=== PATIENT | male | born 1965 ===

== ENCOUNTER 2017-05-04 22:16 | Emergency (ER) | payer MEDICARE, MEDICAID ==
[2017-05-04 22:26] VITALS: RESP 18; TEMP 98.2; O2SAT 100
[2017-05-04 23:05] LABS: BASO # 0.1 K/uL (0.0-0.2); BASO % 0.6 % (0.0-2.0); EOS # 0.5 K/uL (0.0-0.7); HEMOGLOBIN 12.8 g/dL (12.0-18.0); LYMPH # 3.8 K/uL (1.0-4.3); LYMPH % 40.4 % (20.0-40.0); MEAN CELL VOLUME 87.7 fl (80.0-94.0); MEAN CORPUSCULAR HEMOGLOBIN 30.1 pg (27.0-31.0); MEAN CORPUSCULAR HGB CONC 34.4 g/dL (33.0-37.0); MEAN PLATELET VOLUME 7.1 fl (7.2-11.7); MONO # 0.7 K/uL (0.0-0.8); MONO % 7.2 % (0.0-10.0); NEUT # 4.4 K/uL (1.8-7.0); NEUT % 46.8 % (50.0-75.0); RBC 4.24 Mil/uL (4.40-5.90); RED CELL DISTRIBUTION WIDTH 14.7 % (11.5-14.5); WHITE BLOOD COUNT 9.3 K/uL (4.8-10.8)
[2017-05-04 23:11] LABS: BLOOD UREA NITROGEN 19 mg/dl (9-20); CALCIUM 9.7 mg/dL (8.4-10.2); GFR AFRICAN-AMERICAN > 60; GFR NON-AFRICAN AMERICAN > 60
--- NOTE | 2017-05-04 23:23 | ED PDOC ---
HPI: Headache Time Seen by Provider: 05/04/17 22:23 Chief Complaint (Nursing): Dizziness/Lightheaded Chief Complaint (Provider): Headache History Per: Patient History/Exam Limitations: no limitations Onset/Duration Of Symptoms: Days (x4), Gradual, Persistent Current Symptoms Are (Timing): Still Present Associated Symptoms: Photophobia. denies: Extremity Weakness Additional Complaint(s): 51 year old male presents to ED with complaints of persistent migraine headaches x4 days and has a history of HTN (compliant with medication). States that the throbbing headaches are present in the frontal and occipital areas of the head and are not thunderclap headaches. (+) photophobia and dizziness, (-) numbness, weakness, neck stiffness, chest pain, or SOB. PCP: Emy Flores Past Medical History Reviewed: Historical Data, Nursing Documentation, Vital Signs Vital Signs: Last Vital Signs Temp 98.2 F 05/04/17 22:22 Pulse 73 05/04/17 22:59 Resp 18 05/04/17 22:22 BP 117/116 H 05/04/17 22:59 Pulse Ox 100 05/04/17 22:22 - Medical History PMH: HTN, Hypercholesterolemia, Hyperlipidemia - Surgical History Surgical History: Tonsillectomy - Family History Family History: States: Unknown Family Hx - Social History Alcohol: Occasional - Home Medications Home Medications: Ambulatory Orders Medication Instructions Recorded Acetaminophen with Codeine 1 tab PO Q8H #10 tab 03/27/15 [Tylenol with Codeine No. 3 300 mg-30 mg] Naproxen [Naprosyn] 500 mg PO Q12H #20 tab 03/27/15 Naproxen 375 mg PO Q8 PRN #21 tab 09/08/15 oxyCODONE/Acetaminophen [Percocet 1 ea PO Q6 PRN #10 tab 09/08/15 5/325 mg Tab] Famotidine [Pepcid] 20 mg PO Q12 #14 tab 10/16/16 traMADol [Ultram] 50 mg PO Q6 PRN #12 tab 10/16/16 Cyclobenzaprine [Cyclobenzaprine 10 mg PO BID PRN #10 tab 10/23/16 HCl] Naproxen [Naprosyn] 500 mg PO Q12 PRN #14 tablet 10/23/16 Ketorolac Tromethamine [Toradol] 10 mg PO Q6 #20 tab 05/05/17 - Allergies Allergies/Adverse Reactions: Allergies Allergy/AdvReac Type Severity Reaction Status Date / Time No Known Allergies Allergy Verified 10/16/16 19:44 Review of Systems ROS Statement: Except As Marked, All Systems Reviewed And Found Negative Constitutional: Negative for: Fever Eyes: Positive for: Other (Photophobia) Cardiovascular: Negative for: Chest Pain Respiratory: Negative for: Shortness of Breath Neurological: Positive for: Headache, Dizziness. Negative for: Weakness, Numbness Physical Exam - Reviewed Nursing Documentation Reviewed: Yes Vital Signs Reviewed: Yes - Physical Exam Appears: Positive for: Non-toxic, No Acute Distress Head Exam: Positive for: ATRAUMATIC Skin: Positive for: Normal Color, Warm, Dry Eye Exam: Positive for: Normal appearance, EOMI, PERRL Neck: Positive for: Normal, Painless ROM, Supple Cardiovascular/Chest: Positive for: Regular Rate, Rhythm. Negative for: Murmur Respiratory: Positive for: Normal Breath Sounds. Negative for: Respiratory Distress Gastrointestinal/Abdominal: Positive for: Soft. Negative for: Tenderness Extremity: Positive for: Normal ROM. Negative for: Deformity Neurologic/Psych: Positive for: Alert, carcass splitter II-XII (intact), Oriented, Cerebellar Tests (intact), Gait (steady). Negative for: Motor/Sensory Deficits - Laboratory Results Result Diagrams: 05/04/17 22:58 05/04/17 22:58 - ECG O2 Sat by Pulse Oximetry: 100 (RA) Pulse Ox Interpretation: Normal Medical Decision Making Medical Decision Makin Initial impression: migraine headache and HTN Initial plan: * CT HEAD * EKG * Labs * Trop I * Reglan 10mg IVP * Toradol 15mg IVP * Re-eval 3439 CT FINDINGS: Brain: No intracranial hemorrhage. No mass. Few scattered subtle foci of decreased attenuation within periventricular/subcortical white matter. No definite edema. Ventricles: No hydrocephalus. Bones/joints: No acute fracture. Soft tissues: Unremarkable. Sinuses: Scattered mild mucosal thickening. Tiny RIGHT maxillary retention cyst. Mastoid air cells: Minimal partial opacification of RIGHT mastoid, stable. Orbits: Unremarkable as visualized. IMPRESSION: 1. Nonspecific white matter changes. Acute infarction may be CT occult within first 24 hours. If a focal deficit persists, consider followup CT or MRI for further evaluation. 2. Incidental/non-acute findings are described above. 0142 Upon re-evaluation, patient is feeling much better and is medically stable and ready for discharge. Counseling has been provided and patient is in agreement. Return if symptoms persist or acutely worsen. Instructed to recheck BP in the morning before administering AM dose of blood pressure medication. Scribe Attestation: Documented by Faith Gaspar acting as a scribe for Bruno Bailey MD. Scribe Attestation: All medical record entries made by the Scribe were at my direction and personally dictated by me. I have reviewed the chart and agree that the record accurately reflects my personal performance of the history, physical exam, medical decision making, and the department course for this patient. I have also personally directed, reviewed, and agree with the discharge instructions and disposition. Disposition - Clinical Impression Clinical Impression: Dizziness, Headache, Hypertension Counseled Patient/Family Regarding: Studies Performed, Diagnosis - Disposition Referrals: Emy Flores MD [Family Provider] - Disposition: Routine/Home Disposition Time: 01:42 Condition: IMPROVED Prescriptions: Ketorolac Tromethamine [Toradol] 10 mg PO Q6 #20 tab Instructions: Migraine Headache (ED), Hypertension (DC)
--- NOTE | 2017-05-04 23:40 | CT ---
EXAM: CT Head Without Intravenous Contrast CLINICAL HISTORY: 51 years old, male; Pain; Headache; Headache not specified; Additional info: Hypertensive, RAZA, R/O bleed TECHNIQUE: Axial computed tomography images of the head/brain without intravenous contrast. This CT exam was performed using one or more of the following dose reduction techniques: automated exposure control, adjustment of the mA and/or kV according to patient size, and/or use of iterative reconstruction technique. Coronal and sagittal reformatted images were created and reviewed. COMPARISON: CT HEAD OR BRAIN W/O CONT 01/25/2014 6:41:25 PM FINDINGS: Brain: No intracranial hemorrhage. No mass. Few scattered subtle foci of decreased attenuation within periventricular/subcortical white matter. No definite edema. Ventricles: No hydrocephalus. Bones/joints: No acute fracture. Soft tissues: Unremarkable. Sinuses: Scattered mild mucosal thickening. Tiny RIGHT maxillary retention cyst. Mastoid air cells: Minimal partial opacification of RIGHT mastoid, stable. Orbits: Unremarkable as visualized. IMPRESSION: 1. Nonspecific white matter changes. Acute infarction may be CT occult within first 24 hours. If a focal deficit persists, consider followup CT or MRI for further evaluation. 2. Incidental/non-acute findings are described above.
[2017-05-05 01:51] VITALS: BP 148/104; PULSE 67
--- NOTE | 2017-05-05 09:55 | CARD ---
APPROVED REPORT EKG Measurement Heart [id number] <Conclusion> Normal sinus rhythm Normal ECG
== END 2017-05-05 01:55 | disposition home or self-care (01) ==
LOC: H.ER 22:16
DX: R42 Dizziness and giddiness (principal); R51 Headache; I10 Essential (primary) hypertension; E78.00 Pure hypercholesterolemia, unspecified
CPT/HCPCS: 70450; 80048; 84484; 85025; 93005; 96374; 96375; 99284; J1885; J2765

== ENCOUNTER 2017-10-20 07:21 | Emergency (ER) | payer MEDICARE, MEDICAID ==
[2017-10-20 07:26] VITALS: BMI 25.0
[2017-10-20 07:27] VITALS: TEMP 97.6
[2017-10-20] MEDS ORDERED: Sodium Chloride 0.9% 1,000 ML IV STA (07:50)
[2017-10-20] MEDS ORDERED: Morphine 4 MG/ML VIAL ONE (07:55)
[2017-10-20] MEDS ORDERED: Iohexol 240 (50 ml) PO ONE (07:55)
[2017-10-20] MEDS ORDERED: Iohexol 240 (50 ml) ONE (07:55)
[2017-10-20 08:02] LABS: BASO # 0.1 K/uL (0.0-0.2); BASO % 0.8 % (0.0-2.0); EOS # 0.6 K/uL (0.0-0.7); EOS % 4.2 % (0.0-4.0); HEMATOCRIT 42.3 % (35.0-51.0); LYMPH # 3.6 K/uL (1.0-4.3); MEAN CELL VOLUME 86.4 fl (80.0-94.0); MEAN CORPUSCULAR HEMOGLOBIN 29.3 pg (27.0-31.0); MEAN CORPUSCULAR HGB CONC 33.9 g/dL (33.0-37.0); MONO % 6.4 % (0.0-10.0); NEUT # 9.7 K/uL (1.8-7.0); NEUT % 64.6 % (50.0-75.0); NRBC % 0.1 % (0.0-0.0); RED CELL DISTRIBUTION WIDTH 14.6 % (11.5-14.5); WHITE BLOOD COUNT 14.9 K/uL (4.8-10.8)
--- NOTE | 2017-10-20 08:05 | ED PDOC ---
HPI: Abdomen Time Seen by Provider: 10/20/17 07:24 Chief Complaint (Nursing): Abdominal Pain Chief Complaint (Provider): Abdominal Pain History Per: Patient History/Exam Limitations: no limitations Onset/Duration Of Symptoms: Days (x2) Current Symptoms Are (Timing): Still Present Additional Complaint(s): Manuel Harley is a 52 year old male with a past medical history of HTN and gastritis who presents to the ED complaining of RLQ pain x2 days. Patient states pain began last night and denies history of similar pain. Denies nausea, vomiting, diarrhea, and fever. PMD: Non-[facility] Provider Past Medical History Reviewed: Historical Data, Nursing Documentation, Vital Signs Vital Signs: Last Vital Signs Temp 97.6 F 10/20/17 07:26 Pulse 82 10/20/17 11:54 Resp 16 10/20/17 11:54 BP 162/95 H 10/20/17 11:54 Pulse Ox 97 10/21/17 13:27 - Medical History PMH: HTN, Hypercholesterolemia, Hyperlipidemia - Surgical History Surgical History: Tonsillectomy - Family History Family History: States: Unknown Family Hx - Home Medications Home Medications: Ambulatory Orders Medication Instructions Recorded Acetaminophen with Codeine 1 tab PO Q8H #10 tab 03/27/15 [Tylenol with Codeine No. 3 300 mg-30 mg] Naproxen [Naprosyn] 500 mg PO Q12H #20 tab 03/27/15 Naproxen 375 mg PO Q8 PRN #21 tab 09/08/15 oxyCODONE/Acetaminophen [Percocet 1 ea PO Q6 PRN #10 tab 09/08/15 5/325 mg Tab] Famotidine [Pepcid] 20 mg PO Q12 #14 tab 10/16/16 traMADol [Ultram] 50 mg PO Q6 PRN #12 tab 10/16/16 Cyclobenzaprine [Cyclobenzaprine 10 mg PO BID PRN #10 tab 10/23/16 HCl] Naproxen [Naprosyn] 500 mg PO Q12 PRN #14 tablet 10/23/16 Ketorolac Tromethamine [Toradol] 10 mg PO Q6 #20 tab 05/05/17 Docusate [Colace] 100 mg PO BID PRN #10 cap 10/20/17 - Allergies Allergies/Adverse Reactions: Allergies Allergy/AdvReac Type Severity Reaction Status Date / Time No Known Allergies Allergy Verified 10/16/16 19:44 Review of Systems ROS Statement: Except As Marked, All Systems Reviewed And Found Negative Constitutional: Negative for: Fever Gastrointestinal: Positive for: Abdominal Pain (RLQ). Negative for: Nausea, Vomiting, Diarrhea Physical Exam - Reviewed Nursing Documentation Reviewed: Yes Vital Signs Reviewed: Yes - Physical Exam Appears: Positive for: Well, Non-toxic, No Acute Distress Skin: Positive for: Normal Color, Warm, Dry Neck: Positive for: Normal Cardiovascular/Chest: Positive for: Regular Rate, Rhythm. Negative for: Murmur Respiratory: Positive for: Normal Breath Sounds. Negative for: Respiratory Distress Gastrointestinal/Abdominal: Positive for: Tenderness (RLQ tender to palpation) Extremity: Positive for: Normal ROM Neurologic/Psych: Positive for: Alert, Oriented (x3) - Laboratory Results Result Diagrams: 10/20/17 07:50 10/20/17 07:50 - ECG O2 Sat by Pulse Oximetry: 97 (RA) Pulse Ox Interpretation: Normal Medical Decision Making Medical Decision Making: Time: 07:48 Initial Impression: Abdominal pain r/o appendicitis Plan: --CT Abd, pelvis PO & IV contrast --CMP --Lipase --CBC w/ differential --Morphine 4 mg IV --Sodium Chloride 0.9% 1,000 ml IV --Iohexol 50 mg PO --Urine C&S --Urinalysis --Reevaluation 0930 pt sleeping in bed in NAD CT see full report. no appendicitis seen. only constipation. Time: 12:30 --Patient is tolerating PO and results of study were discussed. Upon provider evaluation patient is medically stable, and requires no further treatment in the ED at this time. Patient will be discharged with Rx for Colace. Counseling was provided and all questions were answered regarding diagnosis and need for follow up with PMD. There is agreement to discharge plan. Return if symptoms persist or worsen. Scribe Attestation: Documented by Alvin Lane, acting as a scribe for Tamir Cruz MD. Provider Scribe Attestation: All medical record entries made by the Scribe were at my direction and personally dictated by me. I have reviewed the chart and agree that the record accurately reflects my personal performance of the history, physical exam, medical decision making, and the department course for this patient. I have also personally directed, reviewed, and agree with the discharge instructions and disposition. Disposition - Clinical Impression Clinical Impression: Abdominal pain, Constipation - Patient ED Disposition Is Patient to be Admitted: No Counseled Patient/Family Regarding: Studies Performed, Diagnosis, Need For Followup, Rx Given - Disposition Referrals: [facility] [Outside] [facility] [Outside] Disposition: Routine/Home Disposition Time: 12:30 Condition: IMPROVED Additional Instructions: follow up with your primary doctor in 1-2 days return to the ED with any worsening or concerning symptoms Prescriptions: Docusate [Colace] 100 mg PO BID PRN #10 cap PRN Reason: Constipation Instructions: Constipation (ED) Forms: [employer] (Portuguese)
[2017-10-20 08:11] LABS: ALB/GLOB RATIO 1.3 (1.0-2.1); ALKALINE PHOSPHATASE 166 U/L (38-126); ALT/SGPT 35 U/L (21-72); AST/SGOT 26 U/L (17-59); BILIRUBIN,TOTAL 0.4 mg/dl (0.2-1.3); BLOOD UREA NITROGEN 15 mg/dl (9-20); CALCIUM 9.2 mg/dL (8.4-10.2); CARBON DIOXIDE 26 mmol/L (22-30); CHLORIDE 104 mmol/L (98-107); GFR AFRICAN-AMERICAN > 60; GLUCOSE,RANDOM 93 mg/dL (75-110); LIPASE 111 U/L (23-300); POTASSIUM 3.7 MMOL/L (3.6-5.0); SODIUM 142 mmol/l (132-148); TOTAL PROTEIN 7.8 G/DL (6.3-8.2)
[2017-10-20 08:23] LABS: RBC URINE 2 /hpf (0-3); URINE BILIRUBIN NEGATIVE (NEGATIVE); URINE BLOOD SMALL (NEGATIVE); URINE COLOR YELLOW (YELLOW); URINE GLUCOSE (UA) NEG (Normal); URINE KETONE NEGATIVE (NEGATIVE); URINE LEUKOCYTE ESTERASE NEG Leu/uL (Negative); URINE PROTEIN NEGATIVE (NEGATIVE); URINE UROBILINOGEN 0.2-1.0 mg/dL (0.2-1.0); WBC URINE < 1 /hpf (0-5)
[2017-10-20] MEDS ORDERED: Iohexol 300 100 ML IJ ONE (09:51)
--- NOTE | 2017-10-20 10:33 | CT ---
PROCEDURE: CT Abdomen and Pelvis with contrast HISTORY: Right lower quadrant pain COMPARISON: None. TECHNIQUE: CT scan of the abdomen and pelvis was performed after intravenous administration of contrast. Oral contrast was administered. Coronal and sagittal reformatted images were obtained. Contrast dose: 95 cc Omnipaque 300 Radiation dose: Total exam DLP = 940.70 mGy-cm. This CT exam was performed using one or more of the following dose reduction techniques: Automated exposure control, adjustment of the mA and/or kV according to patient size, and/or use of iterative reconstruction technique. FINDINGS: LOWER THORAX: There is bibasilar subsegmental atelectasis. LIVER: Normal in size with homogeneous enhancement. No gross lesion or ductal dilatation. There is non contiguous curvilinear high attenuation in the anterior inferior left hepatic lobe which may represent vascular enhancement or nonspecific calcifications. GALLBLADDER AND BILE DUCTS: There are no calcified gallstones. PANCREAS: Normal in size with homogeneous enhancement. No gross lesion or ductal dilatation. SPLEEN: The spleen is normal in size with homogeneous enhancement. A tiny 3 mm low-attenuation lesion in the inferior pole posteriorly is too small to characterize by CT criteria. ADRENALS: No discrete nodule. KIDNEYS AND URETERS: Both kidneys are normal in size and there is homogeneous enhancement without hydronephrosis or focal mass. . No hydronephrosis. No solid mass. VASCULATURE: No aortic aneurysm. BOWEL: The small bowel loops are normal in caliber. There is fecalization of the distal small bowel loops. There is large amount of stool in the colon with fecal stasis in the rectum. No bowel dilatation or obstruction APPENDIX: Normal appendix. PERITONEUM: No free fluid. No free air. LYMPH NODES: No enlarged lymph nodes. BLADDER: The urinary bladder is partially distended and there is apparent moderate circumferential mural thickening of the bladder wall, most conspicuous anteriorly. REPRODUCTIVE: There is mild enlargement of the prostate gland. BONES: No acute fracture. There is mild multilevel degenerative disc disease. Focal areas of sclerosis in the posterior superior T9 vertebral body and inferior T2 vertebral body statistically most compatible with a bone island. OTHER FINDINGS: There are bilateral small fat containing inguinal hernias. IMPRESSION: 1. Constipation and fecalization of distal small bowel contents consistent with chronic stasis. No evidence of bowel dilatation or obstruction. 2. No CT evidence for acute appendicitis. 3. Apparent moderate mural thickening of the urinary bladder wall, most conspicuous anteriorly is nonspecific and could be related to underdistention however cystitis cannot be excluded. Please correlate with urine analysis.
[2017-10-20 11:55] VITALS: BP 162/95; PULSE 82; RESP 16
[2017-10-20 14:14] VITALS: O2SAT 97
== END 2017-10-20 12:35 | disposition home or self-care (01) ==
LOC: H.ER 07:21
DX: K59.00 Constipation, unspecified (principal); R10.31 Right lower quadrant pain; E78.00 Pure hypercholesterolemia, unspecified; I10 Essential (primary) hypertension
CPT/HCPCS: 74177; 80053; 81003; 83690; 85025; 87086; 96374; 96375; 99283; J1885; J2270; J7040; Q9966; Q9967

== ENCOUNTER 2018-09-06 10:51 | Emergency (ER) | payer MEDICARE, MEDICAID ==
[2018-09-06 10:51] VITALS: BMI 25.0
[2018-09-06 11:55] LABS: BASO # 0.1 K/uL (0.0-0.2); BASO % 0.6 % (0.0-2.0); EOS # 0.5 K/uL (0.0-0.7); EOS % 4.5 % (0.0-4.0); HEMOGLOBIN 13.6 g/dL (12.0-18.0); LYMPH # 2.9 K/uL (1.0-4.3); LYMPH % 28.4 % (20.0-40.0); MEAN CELL VOLUME 89.3 fl (80.0-94.0); MEAN CORPUSCULAR HEMOGLOBIN 29.4 pg (27.0-31.0); MEAN CORPUSCULAR HGB CONC 32.9 g/dL (33.0-37.0); MEAN PLATELET VOLUME 6.9 fl (7.2-11.7); MONO # 0.7 K/uL (0.0-0.8); MONO % 7.1 % (0.0-10.0); NEUT % 59.4 % (50.0-75.0); NRBC % 0.1 % (0.0-0.0); RBC 4.62 Mil/uL (4.40-5.90); RED CELL DISTRIBUTION WIDTH 14.2 % (11.5-14.5); WHITE BLOOD COUNT 10.1 K/uL (4.8-10.8)
[2018-09-06 12:13] LABS: ALB/GLOB RATIO 1.3 (1.0-2.1); ALBUMIN 4.3 g/dL (3.5-5.0); ALT/SGPT 33 U/L (21-72); AST/SGOT 31 U/L (17-59); BLOOD UREA NITROGEN 11 mg/dl (9-20); CALCIUM 9.2 mg/dL (8.4-10.2); GFR NON-AFRICAN AMERICAN > 60
--- NOTE | 2018-09-06 12:26 | ED PDOC ---
HPI: Chest Pain Time Seen by Provider: 09/06/18 11:13 Chief Complaint (Nursing): Chest Pain Chief Complaint (Provider): chest and shoulder pain History Per: Patient History/Exam Limitations: no limitations Onset/Duration Of Symptoms: Hrs Current Symptoms Are (Timing): Still Present Quality: Sharp Exacerbating Factors: Other (sitting up and taking a deep breath) Alleviating Factors: None Additional Complaint(s): 53 y/o Male cocaine user and current smoker with hx of HTN, HL,who presents with sharp Left sided C/P that began this morning. Patient states that he was eating breakfast when he suddenly had a sharp pain behind his Left shoulder blade that radiated around to his chest and his Left shoulder. The pain in his chest and arm were fleeting but the scapular pain persists. Worse with deep inspiration and leaning forward. No dizziness, SOB, palpitations, N/V, upper or lower extremity numbness. States that he last used cocaine 2 months ago. - Risk Factors PE Risk Factors: Neg: Extremity Immobilization/Fx, Decreased Mobilty /Activity, Previous PE, Venous Stasis TAD Risk Factors: Pos: Hypertension, Sudden Onset Of Pain Past Medical History Reviewed: Historical Data, Nursing Documentation, Vital Signs Vital Signs: Last Vital Signs Temp 98.4 F 09/06/18 10:57 Pulse 88 09/06/18 10:57 Resp 16 09/06/18 10:57 BP 169/111 H 09/06/18 12:00 Pulse Ox 99 09/06/18 10:57 - Medical History PMH: HTN, Hyperlipidemia Other PMH: cocaine use - Surgical History Surgical History: Tonsillectomy - Family History Family History: States: Stroke (mother - age 70s) - Social History Current smoker - smoking cessation education provided: Yes (1pack every 4 days for the past 30yrs) Alcohol: Social (a few beers per week) - Home Medications Home Medications: Ambulatory Orders Medication Instructions Recorded Acetaminophen with Codeine 1 tab PO Q8H #10 tab 03/27/15 [Tylenol with Codeine No. 3 300 mg-30 mg] Naproxen [Naprosyn] 500 mg PO Q12H #20 tab 03/27/15 Naproxen 375 mg PO Q8 PRN #21 tab 09/08/15 oxyCODONE/Acetaminophen [Percocet 1 ea PO Q6 PRN #10 tab 09/08/15 5/325 mg Tab] Famotidine [Pepcid] 20 mg PO Q12 #14 tab 10/16/16 traMADol [Ultram] 50 mg PO Q6 PRN #12 tab 10/16/16 Cyclobenzaprine [Cyclobenzaprine 10 mg PO BID PRN #10 tab 10/23/16 HCl] Naproxen [Naprosyn] 500 mg PO Q12 PRN #14 tablet 10/23/16 Ketorolac Tromethamine [Toradol] 10 mg PO Q6 #20 tab 05/05/17 Docusate [Colace] 100 mg PO BID PRN #10 cap 10/20/17 Cyclobenzaprine [Cyclobenzaprine 10 mg PO Q8H PRN 3 Days tab 09/06/18 HCl] Ibuprofen [Motrin Tab] 600 mg PO Q6H PRN 5 Days tab 09/06/18 - Allergies Allergies/Adverse Reactions: Allergies Allergy/AdvReac Type Severity Reaction Status Date / Time No Known Allergies Allergy Verified 10/16/16 19:44 Review of Systems ROS Statement: Except As Marked, All Systems Reviewed And Found Negative Cardiovascular: Positive for: Chest Pain. Negative for: Palpitations, Edema, Light Headedness Respiratory: Positive for: Pleuritic Pain. Negative for: Cough, Shortness of Breath Gastrointestinal: Negative for: Nausea, Vomiting Musculoskeletal: Positive for: Arm Pain. Negative for: Neck Pain Neurological: Negative for: Weakness, Numbness Physical Exam - Reviewed Nursing Documentation Reviewed: Yes Vital Signs Reviewed: Yes - Physical Exam Appears: Positive for: Non-toxic Head Exam: Positive for: ATRAUMATIC Skin: Positive for: Normal Color Eye Exam: Positive for: Normal appearance, EOMI, PERRL ENT: Positive for: Normal ENT Inspection Neck: Positive for: Normal Cardiovascular/Chest: Positive for: Regular Rate, Rhythm Respiratory: Positive for: Normal Breath Sounds Gastrointestinal/Abdominal: Positive for: Normal Exam (no pulsating mass noted in abdomen) Back: Positive for: Normal Inspection Extremity: Positive for: Normal ROM. Negative for: Pedal Edema, Calf Tenderness Lymphatic: Positive for: Normal Exam Neurologic/Psych: Positive for: Alert, Oriented - Laboratory Results Result Diagrams: 09/06/18 11:50 09/06/18 11:50 - ECG ECG: Positive for: Interpreted By Me ECG Rhythm: Positive for: Sinus Rhythm (NSR, HR 87, no ischemic changes.) O2 Sat by Pulse Oximetry: 99 Medical Decision Making Medical Decision Making: EKG CXR Troponin CBC, CMP Ibuprofen 600mg PO x 1 CXR negative for acute abnormality, EKG: sinus, HR 87, no ischemic change. Trop: < 0.02 Re-evaluated prior to discharge with improvement in scapular and chest pain. Disposition - Clinical Impression Clinical Impression: Shoulder blade pain, Musculoskeletal pain - Patient ED Disposition Is Patient to be Admitted: No Counseled Patient/Family Regarding: Studies Performed, Diagnosis, Rx Given - Disposition Referrals: [facility] [Outside] Disposition: Routine/Home Disposition Time: 16:37 Condition: STABLE Additional Instructions: Use Ibuprofen and Flexeril as needed for pain for the next few days. Avoid excess exercise for the next few days. Prescriptions: Cyclobenzaprine [Cyclobenzaprine HCl] 10 mg PO Q8H PRN 3 Days tab PRN Reason: Pain, Moderate (4-7) Ibuprofen [Motrin Tab] 600 mg PO Q6H PRN 5 Days tab PRN Reason: Pain, Moderate (4-7) Instructions: Muscle and Bone Pain (DC) Forms: [employer] (Lao) Print Language: DANISH
[2018-09-06 12:34] LABS: BARBITURATES, UR NEGATIVE (NEGATIVE); BENZODIAZEPINES, UR NEGATIVE (NEGATIVE); OPIATES, UR NEGATIVE (NEGATIVE); PHENCYCLIDINE, UR NEGATIVE (NEGATIVE)
--- NOTE | 2018-09-06 14:38 | RAD ---
Date of service: 09/06/2018 HISTORY: shortness of breath, cough COMPARISON: Ribs with chest 10/21/2016. TECHNIQUE: Chest PA and lateral FINDINGS: LUNGS: No active pulmonary disease. PLEURA: No significant pleural effusion identified. No pneumothorax apparent. CARDIOVASCULAR: No aortic atherosclerotic calcification present. Normal cardiac size. No pulmonary vascular congestion. OSSEOUS STRUCTURES: No significant abnormalities. VISUALIZED UPPER ABDOMEN: Normal. OTHER FINDINGS: None. IMPRESSION: No interval acute cardiopulmonary disease appreciated.
[2018-09-06 16:44] VITALS: BP 156/98; PULSE 76; RESP 16; TEMP 98.7
--- NOTE | 2018-09-06 18:16 | CARD ---
APPROVED REPORT Date of service: 09/06/2018 EKG Measurement Heart [id number] <Conclusion> Normal sinus rhythm Normal ECG
[2018-09-06 20:59] VITALS: O2SAT 99
== END 2018-09-06 16:37 | disposition home or self-care (01) ==
LOC: H.ER 10:51
DX: M25.512 Pain in left shoulder (principal); M79.10 Myalgia, unspecified site; I10 Essential (primary) hypertension; F17.200 Nicotine dependence, unspecified, uncomplicated; E78.5 Hyperlipidemia, unspecified
CPT/HCPCS: 71046; 80053; 84484; 85025; 93005; 99285; G0480

== ENCOUNTER 2018-11-26 15:16 | Emergency (ER) | payer MEDICARE, MEDICAID ==
[2018-11-26 15:16] VITALS: BMI 25.0
[2018-11-26 15:32] VITALS: RESP 18
[2018-11-26] MEDS ORDERED: Lidocaine 5% Patch TD STA (16:02)
--- NOTE | 2018-11-26 16:13 | ED PDOC ---
HPI: General Adult Chief Complaint (Provider): Left upper back pain/ musculoskeletal pain Additional History Per: Patient Additional Complaint(s): This is 3 y/o M with PMH of HTN, HLD, Gastritis, kidney infection, Chronic lower back and shoulder pain comes to the ER c/o 4 days hx of left upper back pain/muscle spasm. Patient reports pain comes and goes, 7/10, more worse at night while on bed, gets better with walking, sharp in nature, radiated to lateral back and shoulder. Patient reports on and off nausea and one episode of NBNB vomiting last night. Patient denies any substernal chest pain, dizziness, vision problem, urinary symptoms, weakness, numbness or tingling. PMH: As per HPI PSH: Tonsillectomy Allg: NKDA FH: Denies SH: Smokes on and off, 30 years heavy smoking, 2-3 beers/day, denies any alcohol use ROS: As per HPI <Conrad Griffin - Last Filed: 11/26/18 18:49> <Cheli Simpson - Last Filed: 11/26/18 21:04> Time Seen by Provider: 11/26/18 15:32 Chief Complaint (Nursing): Chest Pain Supervising Attending Note - Supervising Attending Note The Documented history was done by the: Physician Stonemason, Attending Physician The documented physical exam was done by the: Physician Stonemason, Attending Physician - Attestation: I have personally seen and examined this patient.: Yes I have fully participated in the care of the patient.: Yes I have reviewed all pertinent clinical information, including history, physical exam and plan: Yes - Notes: Notes:: LEFT flank pain and CVA tenderness but unremarkable ER workup. Stable for dc with clinic followup. <Cheli Simpson - Last Filed: 11/26/18 21:04> Past Medical History Vital Signs: Last Vital Signs Temp 97.7 F 11/26/18 15:30 Pulse 78 11/26/18 15:30 Resp 18 11/26/18 15:30 BP 158/97 H 11/26/18 15:30 Pulse Ox 98 11/26/18 15:30 - Medical History PMH: HTN, Hypercholesterolemia, Hyperlipidemia - Surgical History Surgical History: Tonsillectomy - Family History Family History: States: Unknown Family Hx, Stroke (mother - age 70s) <Conrad Griffin - Last Filed: 11/26/18 18:49> Vital Signs: Last Vital Signs Temp 98.4 F 11/26/18 19:10 Pulse 79 11/26/18 19:10 Resp 18 11/26/18 19:10 BP 141/82 11/26/18 19:10 Pulse Ox 100 11/26/18 19:10 <Cheli Simpson - Last Filed: 11/26/18 21:04> - Home Medications Home Medications: Ambulatory Orders Medication Instructions Recorded Cyclobenzaprine [Cyclobenzaprine 10 mg PO Q8H PRN 3 Days tab 09/06/18 HCl] RX: Ibuprofen [Motrin Tab] 600 mg PO Q6H PRN 5 Days tab 09/06/18 Acetaminophen [Tylenol] 650 mg PO Q6H PRN #30 tab 11/26/18 Cyclobenzaprine [Cyclobenzaprine 10 mg PO Q8H PRN #15 tab 11/26/18 HCl] Docusate Sodium [Colace] 100 mg PO BID PRN #20 capsule 11/26/18 - Allergies Allergies/Adverse Reactions: Allergies Allergy/AdvReac Type Severity Reaction Status Date / Time No Known Allergies Allergy Verified 11/26/18 15:30 Review of Systems Constitutional: Negative for: Fever Eyes: Negative for: Pain ENT: Negative for: Ear Pain, Ear Discharge Cardiovascular: Negative for: Chest Pain Respiratory: Negative for: Cough, Shortness of Breath, Hemoptysis Gastrointestinal: Negative for: Nausea, Vomiting, Abdominal Pain, Diarrhea Genitourinary Male: Negative for: Dysuria, Frequency Musculoskeletal: Positive for: Shoulder Pain, Arm Pain, Back Pain. Negative for: Neck Pain, Leg Pain Neurological: Negative for: Weakness, Numbness, Incoordination Psych: Negative for: Anxiety <Conrad Griffin - Last Filed: 11/26/18 18:49> Physical Exam - Physical Exam Appears: Positive for: No Acute Distress Head Exam: Positive for: NORMAL INSPECTION Skin: Positive for: Normal Color Eye Exam: Positive for: Normal appearance, EOMI, PERRL ENT: Positive for: Normal ENT Inspection Neck: Positive for: Normal, Painless ROM. Negative for: Supple Cardiovascular/Chest: Positive for: Regular Rate, Rhythm. Negative for: Edema, JVD, Murmur Respiratory: Positive for: Normal Breath Sounds. Negative for: Decreased Breath Sounds, Accessory Muscle Use, Crackles, Stridor Gastrointestinal/Abdominal: Positive for: Normal Exam, Bowel Sounds, Soft. Negative for: Tenderness, Distended, Guarding Back: Positive for: Muscle Spasm (left upper back. Tenderness of left upper back and lateral upper back ). Negative for: Vertebral Tenderness Extremity: Positive for: Normal ROM. Negative for: Tenderness, Pedal Edema Neurologic/Psych: Positive for: Alert, electrical and electronic assembler II-XII, Oriented <Conrad Griffin - Last Filed: 11/26/18 18:49> - Laboratory Results Result Diagrams: 11/26/18 16:28 11/26/18 16:28 - ECG O2 Sat by Pulse Oximetry: 98 - Progress ED Course And Treament: A/P: 53 y/o M with Left upper back pain radiating to his lateral back. - CBC, CMP, Lipase - EKG - UA - Toradol, Tylenol, Pepcid, Lidoderm patch and Flexeril - Reevaluation Case discussed with Dr. Simpson CBC, CMP, LIpase reviewed: WNL CT Abdo/Pelvis: reviewed, no acute anatomical abnormalities Patient refused enema Patient agrees with discharge plan Re-evaluation Time: 18:32 Condition: Improving,but remains with symptoms <Conrad Griffin - Last Filed: 11/26/18 18:49> - Laboratory Results Result Diagrams: 11/26/18 16:28 11/26/18 16:28 Lab Results: Total Bilirubin 0.2 mg/dl (0.2-1.3) 11/26/18 16:28 AST 27 U/L (17-59) 11/26/18 16:28 ALT 29 U/L (21-72) 11/26/18 16:28 Alkaline Phosphatase 127 U/L (38-126) H 11/26/18 16:28 Total Protein 7.5 G/DL (6.3-8.2) 11/26/18 16:28 Albumin 4.2 g/dL (3.5-5.0) 11/26/18 16:28 Globulin 3.3 gm/dL (2.2-3.9) 11/26/18 16:28 Albumin/Globulin Ratio 1.3 (1.0-2.1) 11/26/18 16:28 Lipase 109 U/L (23-300) 11/26/18 16:28 Urine Color Colorless (YELLOW) 11/26/18 16:50 Urine Clarity Clear (Clear) 11/26/18 16:50 Urine pH 7.0 (5.0-8.0) 11/26/18 16:50 Ur Specific [place] < 1.005 (1.003-1.030) 11/26/18 16:50 Urine Protein Negative mg/dL (NEGATIVE) 11/26/18 16:50 Urine Glucose (UA) Neg mg/dL (NEGATIVE) 11/26/18 16:50 Urine Ketones Negative mg/dL (NEGATIVE) 11/26/18 16:50 Urine Blood Negative (NEGATIVE) 11/26/18 16:50 Urine Nitrate Negative (NEGATIVE) 11/26/18 16:50 Urine Bilirubin Negative (NEGATIVE) 11/26/18 16:50 Urine Urobilinogen 0.2-1.0 mg/dL (0.2-1.0) 11/26/18 16:50 Ur Leukocyte Esterase Neg [place]/uL (Negative) 11/26/18 16:50 <Cheli Simpson - Last Filed: 11/26/18 21:04> Medical Decision Making Medical Decision Making: Musculoskeletal pain/Muscle spasm Constipation <Conrad Griffin - Last Filed: 11/26/18 18:49> Disposition - Patient ED Disposition Is Patient to be Admitted: No - Disposition Disposition: Routine/Home Disposition Time: 18:35 <Conrad Griffin - Last Filed: 11/26/18 18:49> <Cheli Simpson - Last Filed: 11/26/18 21:04> - Clinical Impression Clinical Impression: Musculoskeletal pain, Muscle spasm of back - Disposition Referrals: Conrad Griffin MD [Family Provider] - Condition: STABLE Additional Instructions: F/u with PMD on 12/01/18 Bed rest, no heavy lifting Return to ER if symptoms do not resolve or gets worse Prescriptions: Acetaminophen [Tylenol] 650 mg PO Q6H PRN #30 tab PRN Reason: Pain, Moderate (4-7) Cyclobenzaprine [Cyclobenzaprine HCl] 10 mg PO Q8H PRN #15 tab PRN Reason: Pain, Moderate (4-7) Docusate Sodium [Colace] 100 mg PO BID PRN #20 capsule PRN Reason: Constipation Instructions: Muscle Strain, Constipation in Adults, Muscle Spasms (DC) Forms: [facility] (Ukrainian) Print Language: NEPALI
[2018-11-26] MEDS ORDERED: Lidocaine 5% Patch TD ONE (16:34)
[2018-11-26 16:44] LABS: BASO # 0.1 K/uL (0.0-0.2); BASO % 0.8 % (0.0-2.0); EOS # 0.4 K/uL (0.0-0.7); EOS % 5.8 % (0.0-4.0); LYMPH # 2.7 K/uL (1.0-4.3); LYMPH % 36.2 % (20.0-40.0); MEAN CELL VOLUME 89.1 fl (80.0-94.0); MEAN CORPUSCULAR HEMOGLOBIN 30.1 pg (27.0-31.0); MEAN CORPUSCULAR HGB CONC 33.8 g/dL (33.0-37.0); MEAN PLATELET VOLUME 7.2 fl (7.2-11.7); MONO # 0.5 K/uL (0.0-0.8); MONO % 7.1 % (0.0-10.0); NEUT # 3.7 K/uL (1.8-7.0); NEUT % 50.1 % (50.0-75.0); NRBC % 0.2 % (0.0-0.0); RBC 4.64 Mil/uL (4.40-5.90); RED CELL DISTRIBUTION WIDTH 14.2 % (11.5-14.5); WHITE BLOOD COUNT 7.4 K/uL (4.8-10.8)
[2018-11-26 16:46] LABS: ALB/GLOB RATIO 1.3 (1.0-2.1); ALBUMIN 4.2 g/dL (3.5-5.0); ALT/SGPT 29 U/L (21-72); AST/SGOT 27 U/L (17-59); BLOOD UREA NITROGEN 19 mg/dl (9-20); CALCIUM 9.7 mg/dL (8.4-10.2); GFR NON-AFRICAN AMERICAN > 60; LIPASE 109 U/L (23-300)
[2018-11-26 17:15] LABS: URINE BILIRUBIN NEGATIVE (NEGATIVE); URINE BLOOD NEGATIVE (NEGATIVE); URINE CLARITY CLEAR (Clear); URINE COLOR COLORLESS (YELLOW); URINE GLUCOSE (UA) NEG (NEGATIVE); URINE LEUKOCYTE ESTERASE NEG Leu/uL (Negative); URINE PROTEIN NEGATIVE (NEGATIVE); URINE UROBILINOGEN 0.2-1.0 mg/dL (0.2-1.0)
--- NOTE | 2018-11-26 18:11 | CT ---
Date of service: 11/26/2018 PROCEDURE: CT Abdomen and Pelvis without intravenous contrast HISTORY: LEFT flank pain COMPARISON: CT scan of the abdomen and pelvis dated 10/20/2017 TECHNIQUE: Contiguous images were obtained from the domes of the diaphragms to the upper thighs without the administration of intravenous contrast. Oral contrast was not administered. Radiation dose: Total exam DLP = 573.92 mGy-cm. This CT exam was performed using one or more of the following dose reduction techniques: Automated exposure control, adjustment of the mA and/or kV according to patient size, and/or use of iterative reconstruction technique. FINDINGS: LOWER THORAX: Unremarkable. LIVER: Inferior left hepatic lobe punctate calcifications. No gross lesion or ductal dilatation. GALLBLADDER AND BILE DUCTS: Contracted. Unremarkable. PANCREAS: Unremarkable. No gross lesion or ductal dilatation. SPLEEN: Unremarkable. ADRENALS: Unremarkable. No mass. KIDNEYS AND URETERS: Unremarkable. No hydronephrosis. No solid mass. VASCULATURE: Unremarkable. No aortic aneurysm. No aortic atherosclerotic calcification or mural plaque present. BOWEL: Small hiatal hernia. Prominent amount of retained colonic stool. No obstruction. No gross mural thickening. APPENDIX: Unremarkable. Normal appendix. PERITONEUM: Small bilateral fat containing inguinal hernias. No free fluid. No free air. LYMPH NODES: Unremarkable. No enlarged lymph nodes. BLADDER: Unremarkable. REPRODUCTIVE: Unremarkable. BONES: No acute fracture. OTHER FINDINGS: None. IMPRESSION: No obstructive uropathy or evidence of recently passed genitourinary calculus. Prominent amount of retained colonic stool. Additional stable findings as above.
[2018-11-26 18:58] LABS: BARBITURATES, UR NEGATIVE (NEGATIVE); BENZODIAZEPINES, UR NEGATIVE (NEGATIVE); OPIATES, UR NEGATIVE (NEGATIVE); PHENCYCLIDINE, UR NEGATIVE (NEGATIVE)
[2018-11-26 19:34] VITALS: BP 141/82; PULSE 79; TEMP 98.4; O2SAT 100
--- NOTE | 2018-11-27 19:31 | CARD ---
APPROVED REPORT Date of service: 11/26/2018 EKG Measurement Heart [id number] <Conclusion> Normal sinus rhythm Normal ECG
== END 2018-11-26 19:10 | disposition home or self-care (01) ==
LOC: H.ER 15:16
DX: M79.18 Myalgia, other site (principal); M62.830 Muscle spasm of back; I10 Essential (primary) hypertension
CPT/HCPCS: 74176; 80053; 81003; 83690; 85025; 87086; 93005; 96374; 99284; G0480; J1885

== ENCOUNTER 2019-01-02 10:47 | Emergency (ER) | payer MEDICARE, MEDICAID ==
[2019-01-02 10:48] VITALS: BMI 25.0
--- NOTE | 2019-01-02 11:34 | ED PDOC ---
HPI: Abdomen Time Seen by Provider: 01/02/19 11:01 Chief Complaint (Nursing): Abdominal Pain Chief Complaint (Provider): Abdominal Pain History Per: Patient History/Exam Limitations: no limitations Onset/Duration Of Symptoms: Hrs Additional Complaint(s): Patient is a 53 y/o male with a PMHx of HTN, hypercholesterolemia, and hyperlipidemia who presents to the ED for evaluation of an episode of rectal bleeding this morning. Patient also admits to abdominal pain and an occasional sharp, right sided pain on his face. Patient denies hematuria, nausea, and vomiting. Of note, patient just recently had a colonoscopy and all his results came back normal. PCP: None Provided Past Medical History Reviewed: Historical Data, Nursing Documentation, Vital Signs Vital Signs: Last Vital Signs Temp 97.8 F 01/02/19 10:52 Pulse 67 01/02/19 10:52 Resp 18 01/02/19 10:52 BP 161/91 H 01/02/19 10:52 Pulse Ox 99 01/02/19 10:52 - Medical History PMH: HTN, Hypercholesterolemia, Hyperlipidemia - Surgical History Surgical History: Tonsillectomy - Family History Family History: States: Stroke (mother - age 70s) - Social History Current smoker - smoking cessation education provided: Yes Alcohol: Social - Home Medications Home Medications: Ambulatory Orders Medication Instructions Recorded Acetaminophen [Tylenol] 650 mg PO Q6H PRN #30 tab 11/26/18 Atorvastatin [Lipitor] 10 mg PO HS 01/02/19 Carvedilol [Coreg] 3.125 mg PO DAILY 01/02/19 Hard Fat/Phenylephrine [place] 1 sup RC DAILY #10 sup 01/02/19 [Anusol Suppository] amLODIPine [Norvasc] 10 mg PO HS 01/02/19 - Allergies Allergies/Adverse Reactions: Allergies Allergy/AdvReac Type Severity Reaction Status Date / Time No Known Allergies Allergy Verified 11/26/18 15:30 Review of Systems ROS Statement: Except As Marked, All Systems Reviewed And Found Negative Gastrointestinal: Positive for: Abdominal Pain, Other (Rectal Bleeding). Negative for: Nausea, Vomiting Genitourinary Male: Negative for: Hematuria Musculoskeletal: Positive for: Other (Sharp, Right-Sided Face Pain) Physical Exam - Reviewed Nursing Documentation Reviewed: Yes Vital Signs Reviewed: Yes - Physical Exam Appears: Positive for: Non-toxic, No Acute Distress Head Exam: Positive for: ATRAUMATIC, NORMAL INSPECTION, NORMOCEPHALIC Skin: Positive for: Normal Color, Warm, Dry Eye Exam: Positive for: EOMI, Normal appearance, PERRL Neck: Positive for: Normal, Painless ROM, Supple Cardiovascular/Chest: Positive for: Regular Rate, Rhythm. Negative for: Murmur Respiratory: Positive for: Normal Breath Sounds. Negative for: Respiratory Distress Gastrointestinal/Abdominal: Positive for: Normal Exam, Soft. Negative for: Tenderness Extremity: Positive for: Normal ROM. Negative for: Pedal Edema, Deformity Neurologic/Psych: Positive for: Alert, Oriented. Negative for: Motor/Sensory Deficits - Laboratory Results Result Diagrams: 01/02/19 11:54 01/02/19 11:54 - ECG O2 Sat by Pulse Oximetry: 99 (RA) Pulse Ox Interpretation: Normal Medical Decision Making Medical Decision Making: Time: 1140 Impression: Rectal Bleeding DDx includes but not limited to hemorrhoid, diverticular disease, and colitis. Plan: Type and Screen BMP CBC PTT Prothrombin Time Scribe Attestation: Documented by Jose Huitron, acting as a scribe for Kim Granda MD. Provider Scribe Attestation: All medical record entries made by the Scribe were at my direction and personally dictated by me. I have reviewed the chart and agree that the record accurately reflects my personal performance of the history, physical exam, medical decision making, and the department course for this patient. I have also personally directed, reviewed, and agree with the discharge instructions and disposition. Disposition - Clinical Impression Clinical Impression: Rectal bleeding - Patient ED Disposition Is Patient to be Admitted: No Doctor Will See Patient In The: Office Counseled Patient/Family Regarding: Diagnosis, Need For Followup, Rx Given - Disposition Referrals: [facility] [Outside] [facility] [Outside] Yoandy Geller [Staff Provider] - Disposition: Routine/Home Disposition Time: 13:20 Condition: STABLE Prescriptions: Hard Fat/Phenylephrine [place] [Anusol Suppository] 1 sup RC DAILY #10 sup Instructions: Bloody Stools, Adult (DC) Forms: [facility] (Bolivian) - POA Present On Arrival: None
[2019-01-02 12:01] LABS: BASO # 0.1 K/uL (0.0-0.2); BASO % 1.1 % (0.0-2.0); EOS # 0.4 K/uL (0.0-0.7); EOS % 5.4 % (0.0-4.0); HEMOGLOBIN 13.8 g/dL (12.0-18.0); LYMPH # 2.5 K/uL (1.0-4.3); LYMPH % 31.6 % (20.0-40.0); MEAN CORPUSCULAR HEMOGLOBIN 29.7 pg (27.0-31.0); MEAN CORPUSCULAR HGB CONC 34.1 g/dL (33.0-37.0); MEAN PLATELET VOLUME 6.9 fl (7.2-11.7); MONO # 0.4 K/uL (0.0-0.8); MONO % 4.5 % (0.0-10.0); NEUT # 4.6 K/uL (1.8-7.0); NEUT % 57.4 % (50.0-75.0); RBC 4.65 Mil/uL (4.40-5.90); RED CELL DISTRIBUTION WIDTH 14.4 % (11.5-14.5); WHITE BLOOD COUNT 7.9 K/uL (4.8-10.8)
[2019-01-02 12:10] LABS: BLOOD UREA NITROGEN 10 mg/dl (9-20); CALCIUM 9.7 mg/dL (8.4-10.2); GFR NON-AFRICAN AMERICAN > 60
[2019-01-02 12:28] LABS: INR 0.9; PARTIAL THROMBOPLASTIN TIME 37.4 Seconds (25.6-37.1); PROTHROMBIN TIME 10.6 Seconds (9.8-13.1)
[2019-01-02 13:42] VITALS: TEMP 97.6
[2019-01-02 14:09] VITALS: BP 130/76; PULSE 72; RESP 21; O2SAT 98
== END 2019-01-02 14:10 | disposition home or self-care (01) ==
LOC: H.ER 10:47
DX: K62.5 Hemorrhage of anus and rectum (principal); F17.200 Nicotine dependence, unspecified, uncomplicated; I10 Essential (primary) hypertension

== ENCOUNTER 2019-02-27 16:32 | Emergency (ER) | payer MEDICARE, MEDICAID ==
[2019-02-27 16:32] VITALS: BMI 25.0
[2019-02-27 16:38] VITALS: PULSE 82; TEMP 98.2
[2019-02-27 17:12] VITALS: BP 145/84; RESP 18; O2SAT 100
--- NOTE | 2019-02-27 17:35 | ED PDOC ---
HPI: Skin/Bite Injury Time Seen by Provider: 02/27/19 16:42 Chief Complaint (Nursing): Lower Extremity Problem/Injury Chief Complaint (Provider): Abnormal skin integrity History Per: Patient History/Exam Limitations: no limitations Onset/Duration Of Symptoms: Days (1x week) Current Symptoms Are (Timing): Still Present Severity: Moderate Additional Complaint(s): 53 year old male with no pertinent past medical history presents to the ED for an evaluation for an evaluation of abnormal skin integrity that started 1x week ago. Patient states that for the past week he has had a pruritic rash on his left leg which travelled to his right leg. Patient states that he noticed the rash came about after wearing shorts outside near a lot of lawns recently. Patient reports taking benadryl without relief. Patient denies having fevers, antipyretic use, pain, or a history of diabetes. PMD: [facility] Past Medical History Reviewed: Historical Data, Nursing Documentation, Vital Signs Vital Signs: Last Vital Signs Temp 98.2 F 02/27/19 17:10 Pulse 82 02/27/19 17:10 Resp 18 02/27/19 17:10 BP 145/84 02/27/19 17:10 Pulse Ox 100 02/27/19 17:10 RAYA Report Viewed: Yes - Medical History PMH: HTN, Hypercholesterolemia, Hyperlipidemia - Surgical History Surgical History: Tonsillectomy - Family History Family History: States: Stroke (mother- age 70s) - Social History Current smoker - smoking cessation education provided: Yes (light) Alcohol: Social Drugs: Denies - Immunization History Hx Tetanus Toxoid Vaccination: No Hx Influenza Vaccination: No Hx Pneumococcal Vaccination: No - Home Medications Home Medications: Ambulatory Orders Medication Instructions Recorded Acetaminophen [Tylenol] 650 mg PO Q6H PRN #30 tab 11/26/18 Atorvastatin [Lipitor] 10 mg PO HS 01/02/19 Carvedilol [Coreg] 3.125 mg PO DAILY 01/02/19 Hard Fat/Phenylephrine [place] 1 sup RC DAILY #10 sup 01/02/19 [Anusol Suppository] amLODIPine [Norvasc] 10 mg PO HS 01/02/19 Cephalexin [cephalexin] 500 mg PO Q6 #28 cap 02/27/19 Methylprednisolone [Medrol Dose 4 mg PO DAILY #21 mg 02/27/19 Pack (21 tabs)] - Allergies Allergies/Adverse Reactions: Allergies Allergy/AdvReac Type Severity Reaction Status Date / Time No Known Allergies Allergy Verified 11/26/18 15:30 Review of Systems ROS Statement: Except As Marked, All Systems Reviewed And Found Negative Constitutional: Negative for: Fever Skin: Positive for: Rash (pruritic rash on left leg, travelled to right leg. (-) pain) Physical Exam - Reviewed Nursing Documentation Reviewed: Yes Vital Signs Reviewed: Yes - Physical Exam Appears: Positive for: Well, Non-toxic, No Acute Distress Head Exam: Positive for: ATRAUMATIC, NORMOCEPHALIC Skin: Positive for: Warm, Dry, Rash (bilateral lower extremities with faint erythema, scattered vesicles with the greatest amount to the left calf. (-) discharge, (-) foul odor, (-) streaking. erythema noncircumferential.) Pulses-Dorsalis Pedis (L): 2+ Pulses-Dorsalis Pedis (R): 2+ Neurological/Psych: Positive for: Awake, Alert, Oriented (3x) - ECG O2 Sat by Pulse Oximetry: 100 (RA) Pulse Ox Interpretation: Normal Medical Decision Making Medical Decision Makin:42 Initial impression: 53 year old male with a rash Initial plan: Advised patient to follow up with [facility] in 2x days or in ED, but if symptoms worsen or if fever develops, return to the ED immediately. Scribe Attestation: Documented by Yara Osullivan, acting as a scribe for Maurilio Mead Provider Scribe Attestation: All medical record entries made by the Scribe were at my direction and personally dictated by me. I have reviewed the chart and agree that the record accurately reflects my personal performance of the history, physical exam, medical decision making, and the department course for this patient. I have also personally directed, reviewed, and agree with the discharge instructions and disposition. Disposition - Clinical Impression Clinical Impression: Rhus dermatitis, Cellulitis - Patient ED Disposition Is Patient to be Admitted: No - Disposition Referrals: [facility] [Outside] Disposition: Routine/Home Disposition Time: 17:10 Condition: STABLE Additional Instructions: FOLLOW UP WITH [facility] FOR FURTHER EVALUATION RETURN TO ED IMMEDIATELY IF SYMPTOMS WORSEN FRANCES LACKEY , thank you for letting us take care of you today. Your provider was Cheli Simpson MD and you were treated for LT FOOT PAIN/SWOLLEN. The emergency medical care you received today was directed at your acute symptoms. If you were prescribed any medication, please fill it and take as directed. It may take several days for your symptoms to resolve. Return to the Emergency Department if your symptoms worsen, do not improve, or if you have any other problems. Please contact your doctor or call one of the physicians/clinics you have been referred to that are listed on the Patient Visit Information form that is included in your discharge packet. Bring any paperwork you were given at dis charge with you along with any medications you are taking to your follow up visit. Our treatment cannot replace ongoing medical care by a primary care provider outside of the emergency department. Thank you for allowing the [facility] team to be part of your care today. If you had an X-Ray or CT scan: A Radiologist will review the ED reading if any change in treatment is needed we will contact you. If you had a blood, urine, or wound culture: It will take several days for the results, if any change in treatment is needed we will contact you. If you had an STI test: It will take 48 hours for the results. Please call after 1 week if you have not heard back. Prescriptions: Cephalexin [cephalexin] 500 mg PO Q6 #28 cap Methylprednisolone [Medrol Dose Pack (21 tabs)] 4 mg PO DAILY #21 mg Instructions: Poison [place], Poison [place], Poison [place] (DC), Cellulitis (Skin Infection), Adult (DC) Forms: [employer] (Latvian) Print Language: YORUBA
== END 2019-02-27 17:10 | disposition home or self-care (01) ==
LOC: H.ER 16:32
DX: L23.7 Allergic contact dermatitis due to plants, except food (principal); L03.119 Cellulitis of unspecified part of limb; E78.00 Pure hypercholesterolemia, unspecified; I10 Essential (primary) hypertension

== ENCOUNTER 2019-03-01 08:00 | Emergency (ER) | payer MEDICARE, MEDICAID ==
[2019-03-01 08:01] VITALS: BMI 25.0
[2019-03-01 08:04] VITALS: TEMP 97.8
--- NOTE | 2019-03-01 09:28 | ED PDOC ---
HPI: Skin/Bite Injury Time Seen by Provider: 03/01/19 08:31 Chief Complaint (Nursing): Abnormal Skin Integrity Chief Complaint (Provider): Rash History Per: Patient History/Exam Limitations: no limitations Onset/Duration Of Symptoms: Days Current Symptoms Are (Timing): Still Present Location Of Injury: Right: Leg, Left: Leg Quality Of Symptoms: Itching Additional History Per: Patient Additional Complaint(s): 53yo male, otherwise well, comes to ER for evaluation of rash to bilateral lower legs. Patient was evaluated in this ER 3 days ago for same complaint, was discharged home on keflex and Medrol dose pack. Patient states the rash is persistent, has worsened and now present on both legs. He denies any pain, or discharge and states it is very itchy. No additional complaints. PMD: [facility] Past Medical History Reviewed: Historical Data, Nursing Documentation, Vital Signs Vital Signs: Last Vital Signs Temp 97.8 F 03/01/19 08:04 Pulse 85 03/01/19 08:04 Resp 19 03/01/19 08:04 BP 168/96 H 03/01/19 08:04 Pulse Ox 97 03/01/19 08:04 - Medical History PMH: HTN, Hypercholesterolemia, Hyperlipidemia - Surgical History Surgical History: Tonsillectomy - Family History Family History: States: Unknown Family Hx, Stroke (mother- age 70s) - Immunization History Hx Tetanus Toxoid Vaccination: No Hx Influenza Vaccination: No Hx Pneumococcal Vaccination: No - Home Medications Home Medications: Ambulatory Orders Medication Instructions Recorded Acetaminophen [Tylenol] 650 mg PO Q6H PRN #30 tab 11/26/18 Atorvastatin [Lipitor] 10 mg PO HS 01/02/19 Carvedilol [Coreg] 3.125 mg PO DAILY 01/02/19 Hard Fat/Phenylephrine [place] 1 sup RC DAILY #10 sup 01/02/19 [Anusol Suppository] amLODIPine [Norvasc] 10 mg PO HS 01/02/19 Cephalexin [cephalexin] 500 mg PO Q6 #28 cap 02/27/19 Methylprednisolone [Medrol Dose 4 mg PO DAILY #21 mg 02/27/19 Pack (21 tabs)] Cetirizine HCl [24Hour Allergy] 10 mg PO DAILY #10 tablet 03/01/19 Hydrocortisone 0.5% [Cortizone 1 / TP BID PRN #1 tube 03/01/19 0.5%] - Allergies Allergies/Adverse Reactions: Allergies Allergy/AdvReac Type Severity Reaction Status Date / Time No Known Allergies Allergy Verified 11/26/18 15:30 Review of Systems ROS Statement: Except As Marked, All Systems Reviewed And Found Negative Skin: Positive for: Rash Physical Exam - Reviewed Nursing Documentation Reviewed: Yes Vital Signs Reviewed: Yes - Physical Exam Appears: Positive for: Non-toxic Skin: Positive for: Rash (coalesced erythematous rash present medially on left lower leg; patchy, erythematous rash on right lower leg; no discharge, tenderness) Eye Exam: Positive for: Normal appearance Cardiovascular/Chest: Negative for: Tachycardia Respiratory: Negative for: Respiratory Distress Extremity: Positive for: Normal ROM. Negative for: Pedal Edema Neurological/Psych: Positive for: Awake, Alert, Normal Tone - Laboratory Results Result Diagrams: 03/01/19 09:25 03/01/19 09:25 - ECG O2 Sat by Pulse Oximetry: 97 (RA) Pulse Ox Interpretation: Normal Medical Decision Making Medical Decision Making: Impression: Rash Plan: -- Labs ScribeAttestation: Documented byKelly Sousa, acting as a scribe for Albina Bruner MD. Provider ScribeAttestation: All medical record entries made by the Scribe were at my direction and personally dictated by me. I have reviewed the chart and agree that the record accurately reflects my personal performance of the history, physical exam, medical decision making, and the department course for this patient. I have also personally directed, reviewed, and agree with the discharge instructions and disposition. Disposition - Clinical Impression Clinical Impression: Rash - Disposition Referrals: [facility] [Outside] Rubin Gordon MD [Staff Provider] - Disposition: Routine/Home Disposition Time: 12:35 Condition: STABLE Prescriptions: Cetirizine HCl [24Hour Allergy] 10 mg PO DAILY #10 tablet Hydrocortisone 0.5% [Cortizone 0.5%] 1 / TP BID PRN #1 tube PRN Reason: Rash Instructions: Skin Rash Forms: [facility] (Senegalese)
[2019-03-01 09:34] LABS: BASO % 0.6 % (0.0-2.0); EOS # 0.3 K/uL (0.0-0.7); EOS % 3.5 % (0.0-4.0); HEMOGLOBIN 13.5 g/dL (12.0-18.0); LYMPH # 1.8 K/uL (1.0-4.3); LYMPH % 20.7 % (20.0-40.0); MEAN CELL VOLUME 87.7 fl (80.0-94.0); MEAN CORPUSCULAR HEMOGLOBIN 29.7 pg (27.0-31.0); MEAN CORPUSCULAR HGB CONC 33.9 g/dL (33.0-37.0); MEAN PLATELET VOLUME 6.6 fl (7.2-11.7); MONO # 0.4 K/uL (0.0-0.8); MONO % 4.5 % (0.0-10.0); NEUT # 6.1 K/uL (1.8-7.0); NEUT % 70.7 % (50.0-75.0); RBC 4.54 Mil/uL (4.40-5.90); RED CELL DISTRIBUTION WIDTH 14.9 % (11.5-14.5); WHITE BLOOD COUNT 8.6 K/uL (4.8-10.8)
[2019-03-01 09:45] LABS: ALB/GLOB RATIO 1.4 (1.0-2.1); ALBUMIN 4.7 g/dL (3.5-5.0); ALT/SGPT 38 U/L (21-72); AST/SGOT 58 U/L (17-59); BLOOD UREA NITROGEN 12 mg/dl (9-20); CALCIUM 10.1 mg/dL (8.4-10.2); GFR NON-AFRICAN AMERICAN > 60
[2019-03-01 09:48] LABS: INR 0.9; PROTHROMBIN TIME 10.6 Seconds (9.8-13.1)
[2019-03-01 12:49] VITALS: BP 156/99; PULSE 80; RESP 18
[2019-03-07 08:11] VITALS: O2SAT 97
== END 2019-03-01 12:56 | disposition home or self-care (01) ==
LOC: H.ER 08:00
DX: R21 Rash and other nonspecific skin eruption (principal); I10 Essential (primary) hypertension; E78.00 Pure hypercholesterolemia, unspecified